=== PATIENT | female | born 1960 | race American Indian/Alaskan Native ===

== ENCOUNTER 2018-10-18 08:12 | Outpatient (CLI) | payer BC ==
--- NOTE | 2018-10-24 08:18 | Magnetic Resonance Report ---
BILATERAL BREAST MR WITHOUT AND WITH GADOLINIUM INDICATION: Risk for breast cancer. COMPARISONS: 08/03/2018 mammogram TECHNIQUE: Axial 1.0 mm T1 without, axial high-resolution 2.0 mm T2 and axial 1.0 mm dynamic vibrant high-resolution postcontrast T1 fat saturation sequences on a 1.5 Lara magnet. The examination was p erformed with an 8-channel dedicated [place] breast coil. Post-processing with CAD and subtraction was performed on an [employer] workstation. 20 cc of MultiHance was injected without incident for the con trast portion of the exam. Consent was obtained prior to the administration of the contrast. FINDINGS: RIGHT BREAST: Minimal background parenchymal enhancement. No mass or suspicious enhancement. No suspi cious lymph nodes. LEFT BREAST: Minimal background parenchymal enhancement. No mass or suspicious enhancement. No suspic ious lymph nodes. IMPRESSION: Normal study. Recommend routine mammographic screening. BI-RADS Category: 1 Negative Signer Name: Simón Aguirre MD Signed: 10/24/2018 8:14 AM Workstation Name: [id number]
== END 2018-10-18 08:13 | disposition home or self-care (01) ==
LOC: SPVIMAG 08:12
PROVIDERS: ATTEND Surgery
DX: N60.02 Solitary cyst of left breast (principal); Z80.3 Family history of malignant neoplasm of breast
CPT/HCPCS: A9577; C8908; 77049